=== PATIENT | male | born 1985 | race Caucasian/White ===

== ENCOUNTER 2020-02-06 17:44 | Emergency (ER) | payer SELFPAY ==
[~2020-02-06] VITALS: Ht 170.2 cm; Wt 81.2 kg
[2020-02-06] MEDS ORDERED: FENTANYL CITRATE 100 MCG/2 ML AMPUL ONE ×2 (17:56→18:51)
--- NOTE | 2020-02-06 17:58 | NUR ---
PT IS IN ROOM #2A. DR OTERO EVALUATED THE PT.
[2020-02-06] MEDS ORDERED: FENTANYL CITRATE 100 MCG/2 ML AMPUL IV ONE ×2 (18:00→18:45)
--- NOTE | 2020-02-06 18:36 | NUR ---
PT's LEFT WRIST FRACTURE WAS REDUCED BY DR OTERO ( CLOSE REDUCTION). PT TOLERATED TO PROCEDURE WITHOUT COMPLICATIONS.
--- NOTE | 2020-02-06 18:57 | NUR ---
REPORT GIVEN TO STAMPING MACHINE OPERATOR DOREEN FERREIRA.
[2020-02-06 19:37] VITALS: BP 119/78
--- NOTE | 2020-02-06 19:37 | NUR ---
Patient discharged to home in stable condition. Written and verbal after care instructions given. Patient verbalizes understanding of instructions. Stressed follow up or return to ER for worsening s/s. IV removed. Catheter intact and site benign. Pressure and 4x4 gauze applied to site. No bleeding noted.
== END 2020-02-06 19:38 | disposition home or self-care (01) ==
LOC: ER 17:48
PROC: 0PSLXZZ Reposition Left Ulna, External Approach (ICD-10-PCS; principal; 2020-02-06)
PROC: 0PSJXZZ Reposition Left Radius, External Approach (ICD-10-PCS; principal; 2020-02-06)
DX: S52.501A Unspecified fracture of the lower end of right radius, initial encounter for closed fracture (principal); S52.602A Unspecified fracture of lower end of left ulna, initial encounter for closed fracture; W01.0XXA Fall on same level from slipping, tripping and stumbling without subsequent striking against object, initial encounter; Y93.89 Activity, other specified; Y92.69 Other specified industrial and construction area as the place of occurrence of the external cause; Y99.0 Civilian activity done for income or pay
CPT/HCPCS: 25605; 73090; 96374; 96376; 99284; J3010 ×2; A4663